=== PATIENT | female | born 1950 | race Hispanic/Latino ===

== ENCOUNTER 2020-09-04 12:04 | Inpatient (IN) | payer MEDICARE, OTHER ==
[~2020-09-04 12:04] MED LIST: Iopamidol 370 76% 100 ML VIAL ONE; Iopamidol 370 76% 50 ML VIAL FS ONE
[2020-09-04] MEDS ORDERED: Heparin 10,000 UNITS/ 10 ML VIAL ONE ×2 (12:09→13:53)
[2020-09-04] MEDS ORDERED: Nitroglycerin 100MG/250ML BOT 250 ML ONE (12:09)
[2020-09-04] MEDS ORDERED: Ondansetron PF 4 MG/2 ML Vial ONE (12:09)
[2020-09-04 12:25] LABS: #Basophils 0.1 thou/uL (0.0-0.2); #Eosinphils 0.2 thou/uL (0.0-0.7); #Lymphocytes 2.4 thou/uL (1.20-3.40); #Monocytes 0.7 thou/uL (0.11-0.59); #Neutrophils 8.8 thou/uL (1.40-6.50); %Basophils 0.9 % (0.0-1.0); %Eosinophils 1.7 % (0.0-10.0); %Lymphocytes 19.3 % (21.0-51.0); %Monocytes 5.7 % (0.0-10.0); %Neutrophils 72.4 % (42.0-75.0); Hemoglobin 13.3 g/dL (12.0-16.0); Mean Corpuscular HGB CONC 33.8 g/dL (32.0-36.0); Mean Corpuscular Hemoglobin 31.4 pg (27.0-31.0); Mean Corpuscular Volume 92.8 fL (78.0-98.0); Mean Platelet Volume 7.2 fL (7.4-10.4); Platelet Count 360 thou/uL (130-400); RBC Distribution Width 12.1 % (11.5-14.5); Red Blood Cell (RBC) Count 4.24 mill/uL (4.20-5.40); White Blood Cell (WBC) Count 12.2 thou/uL (4.8-10.8)
[2020-09-04 12:46] LABS: ALT (SGPT) 11 U/L (8-55); AST (SGOT) 12 U/L (5-34); Alkaline Phosphatase 84 U/L (40-110); Anion Gap 15 mmol/L (10-20); BUN (Urea Nitrogen) 15 mg/dL (9.8-20.1); Bilirubin, Total 0.5 mg/dL (0.2-1.2); Calc. Creatinine Clearance 0 mL/min (70-130); Calcium 9.6 mg/dL (7.8-10.44); Carbon Dioxide 26 mmol/L (23-31); Chloride 103 mmol/L (98-107); Estimated GFR-MDRD 59; Globulin 2.9 g/dL (2.4-3.5); Glucose 235 mg/dL (83-110); Potassium 3.6 mmol/L (3.5-5.1); Protein, Total 6.9 g/dL (6.0-8.3); Sodium 140 mmol/L (136-145)
[2020-09-04] MEDS ORDERED: Aggrastat 12.5 MG/250 ML 250 ML ONE (12:53)
[2020-09-04] MEDS ORDERED: Norepinephrine 4 MG/4 ML VIAL ONE ×2 (12:54→13:18)
[2020-09-04 13:08] LABS: CKMB 2.5 ng/mL (0-6.6)
[2020-09-04] MEDS ORDERED: Fentanyl 100 MCG/2 ML VIAL ONE (13:19)
[2020-09-04] MEDS ORDERED: TICAGRELOR 90 MG TABLET ONE ×2 (13:45→14:20)
--- NOTE | 2020-09-04 14:15 | RAD ---
PORTABLE CHEST: Date: 09-04-2020 PROVIDED CLINICAL HISTORY: Chest pain FINDINGS: Comparison is made with examination performed earlier same date. Significant interval change with respect to the prior examination is not apparent. IMPRESSION: As above. POS: REAGAN
[2020-09-04 14:44] VITALS: BMI 44.7
[2020-09-04] MEDS ORDERED: Nitroglycerin 0.4 MG TAB (25 Tab Bottle) SL PRN (15:25)
[2020-09-04] MEDS ORDERED: TICAGRELOR 90 MG TABLET PO SCH (15:30)
[2020-09-04] MEDS ORDERED: Aspirin Chewable 81 MG TAB PO SCH (16:00)
[2020-09-04] MEDS: Carvedilol 3.125 MG TAB PO SCH (16:34)
[2020-09-04] MEDS: Sodium Chloride 0.9% 1,000 ML IV SCH ×2 (16:38→20:08)
[2020-09-04] MEDS: traMADol HCl 50 MG TAB PO PRN (17:39)
[2020-09-04 17:52] LABS: Troponin I Greater than 45.000 ng/mL (< 0.028)
[2020-09-04] MEDS: TICAGRELOR 90 MG TABLET PO SCH (20:08)
[2020-09-04] MEDS: Atorvastatin Calcium 40 MG TAB PO SCH (20:08)
--- NOTE | 2020-09-04 20:46 | HP ---
REASON FOR TRANSFER: Acute anterior myocardial infarction. HISTORY OF PRESENT ILLNESS: Ms. Hernandez is a 70-year-old woman, with history of morbid obesity, diabetes, hypertension, and hypercholesterolemia. The patient presented to the emergency room in [place] with severe substernal chest pain. EKG showed an acute anterior myocardial infarction. Patient was transferred here. The initial EKG showed ST elevation in lead 1 and aVL with T-wave inversions in II, III, and aVF, but when arrival here, her EKG had worsened with increasing amounts of ST elevation. Patient is having 10/10 pain, was very uncomfortable, almost panicky. PAST HISTORY: 1. Morbid obesity. 2. Diabetes. 3. Hypertension. 4. Hypercholesterolemia. MEDICATION: Unknown. REVIEW OF SYSTEMS: CONSTITUTIONAL: No weight loss. VISION: No changes. HEARING: No changes. PULMONARY: No cough or wheezing. CARDIAC: Severe chest pain. GASTROINTESTINAL: No nausea, vomiting, or diarrhea. SKIN: No rashes. NEUROLOGIC: No unilateral weakness or numbness. PSYCHIATRIC: No unusual depression or anxiety. PHYSICAL EXAMINATION: GENERAL: This is a morbidly obese patient. She states she is 5 feet 6 inches tall, weighs over 280 pounds. Per her report, I would estimate she weighs at least that much. VITAL SIGNS: Blood pressure is variable anywhere and sometimes in the 100 systolic range and sometimes higher. Pulse is in the 70s. NECK: Neck veins are normal. Carotids, no bruits. LUNGS: Distant heart sounds due to obesity. CARDIAC: Normal S1, normal S2. No murmur, rub, or gallop. ABDOMEN: Morbidly obese. EXTREMITIES: No clubbing or cyanosis. There is no edema. Peripheral pulses palpable in her feet. DIAGNOSTIC STUDIES: EKG showed severe ST elevation. ASSESSMENT: 1. Acute extensive myocardial infarction. 2. Morbid obesity. 3. Diabetes. 4. History of hypertension. 5. History of hypercholesterolemia. PLAN: Through an post closing specialist, I have explained the procedure of the cardiac catheterization. I have explained risk of stroke, heart attack, loss of blood supply to the leg or kidney. Patient is critically ill. Procedure on an emergency basis to the cardiac catheterization lab. Job ID: [id number]
[2020-09-04] MEDS ORDERED: Lisinopril 2.5 MG TAB PO SCH ×2 (21:45→21:55)
[2020-09-04] MEDS ORDERED: Magnesium Sulfate 3 GM in Sodium Chloride 0.9% 250 ML 250 ML IVPB SCH (22:30)
[2020-09-04 23:46] LABS: Anion Gap 10 mmol/L (10-20); BUN (Urea Nitrogen) 12 mg/dL (9.8-20.1); Calc. Creatinine Clearance 153 mL/min (70-130); Calcium 7.4 mg/dL (7.8-10.44); Carbon Dioxide 20 mmol/L (23-31); Chloride 110 mmol/L (98-107); Estimated GFR-MDRD 88; Glucose 173 mg/dL (83-110); Potassium 3.4 mmol/L (3.5-5.1); Sodium 137 mmol/L (136-145)
[2020-09-04 23:52] LABS: Critical Call Chem Troponin I RESULT DECREASING; Troponin I 89.057 ng/mL (< 0.028)
[2020-09-05] MEDS: traMADol HCl 50 MG TAB PO PRN (02:37)
[2020-09-05 03:52] LABS: #Basophils 0.1 thou/uL (0.0-0.2); #Eosinphils 0.1 thou/uL (0.0-0.7); #Lymphocytes 1.2 thou/uL (1.20-3.40); #Monocytes 0.7 thou/uL (0.11-0.59); #Neutrophils 10.8 thou/uL (1.40-6.50); %Basophils 0.5 % (0.0-1.0); %Eosinophils 0.4 % (0.0-10.0); %Lymphocytes 9.2 % (21.0-51.0); %Monocytes 5.4 % (0.0-10.0); %Neutrophils 84.5 % (42.0-75.0); Hemoglobin 12.8 g/dL (12.0-16.0); Mean Corpuscular HGB CONC 33.6 g/dL (32.0-36.0); Mean Corpuscular Hemoglobin 30.8 pg (27.0-31.0); Mean Corpuscular Volume 91.7 fL (78.0-98.0); Mean Platelet Volume 7.3 fL (7.4-10.4); Platelet Count 307 thou/uL (130-400); RBC Distribution Width 12.3 % (11.5-14.5); Red Blood Cell (RBC) Count 4.16 mill/uL (4.20-5.40); White Blood Cell (WBC) Count 12.8 thou/uL (4.8-10.8)
[2020-09-05 04:14] LABS: ALT (SGPT) 32 U/L (8-55); AST (SGOT) 188 U/L (5-34); Albumin 3.5 g/dL (3.4-4.8); Alkaline Phosphatase 73 U/L (40-110); Anion Gap 13 mmol/L (10-20); BUN (Urea Nitrogen) 13 mg/dL (9.8-20.1); Bilirubin, Total 0.4 mg/dL (0.2-1.2); Calc. Creatinine Clearance 123 mL/min (70-130); Calcium 8.7 mg/dL (7.8-10.44); Carbon Dioxide 23 mmol/L (23-31); Chloride 104 mmol/L (98-107); Estimated GFR-MDRD 69; Globulin 2.5 g/dL (2.4-3.5); Glucose 205 mg/dL (83-110); Potassium 3.9 mmol/L (3.5-5.1); Sodium 136 mmol/L (136-145)
[2020-09-05 04:33] LABS: Troponin I 91.479 ng/mL (< 0.028)
[2020-09-05] MEDS ORDERED: FLU VACC QS2020-21(65YR UP)/PF 240 MCG/0.7 ML SYRINGE IM ONE (09:00)
[2020-09-05] MEDS ORDERED: Lisinopril 2.5 MG TAB PO SCH (09:00)
[2020-09-05] MEDS ORDERED: Aspirin Chewable 81 MG TAB PO SCH (09:00)
[2020-09-05] MEDS: Aspirin Chewable 81 MG TAB PO SCH (09:11)
[2020-09-05] MEDS: Carvedilol 3.125 MG TAB PO SCH (09:12)
[2020-09-05] MEDS: TICAGRELOR 90 MG TABLET PO SCH ×2 (09:14→20:33)
[2020-09-05] MEDS: Lisinopril 5 MG TAB PO SCH ×2 (09:14→10:38)
--- NOTE | 2020-09-05 09:44 | PRG ---
DATE OF SERVICE: 09/05/2020 SUBJECTIVE: Ms. Hernandez is feeling okay this morning. She complains of abdominal bloating. She has no chest pain or pressure. The patient is very immobile. She is overweight. OBJECTIVE: VITAL SIGNS: She is 5 feet 6 inches tall, 277 pounds, BMI is 44.7. LUNGS: Clear. CARDIAC: Normal S1, S2. ABDOMEN: Obese, nontender. EXTREMITIES: No clubbing or cyanosis. No edema. PERTINENT LABORATORY DATA: Her peak troponin was 91.4. Potassium is 3.9, glucose 205. ASSESSMENT: 1. Status post anterior myocardial infarction. 2. Morbid obesity. 3. Diabetes mellitus. 4. Abdominal fullness. It was noted in the [employer] that she had a lot of colonic distention. PLAN: 1. Need to get her up and around. 2. She is on statins. 3. Aspirin. 4. Beta blockers. 5. Brilinta. 6. Really need to get physical therapy involved, cardiac rehab, looks like the patient is going to have a tendency to not get up and around. She is extremely overweight, looks like mobility is a real problem as well. We will start low-dose Lovenox today as well. ADDENDUM: Ms. Hernandez developed atrial arrhythmias with a rapid rate. Some of it looks like atrial flutter, some looks like atrial fibrillation. She has been started on intravenous diltiazem and we are also adding beta blockers. Job ID: [id number]
[2020-09-05 10:00] LABS: Cardiac Risk 3.2 (Less than 4.5)
[2020-09-05] MEDS: Bisacodyl 5 MG TAB PO PRN (10:59)
[2020-09-05] MEDS: Sodium Chloride 0.9% 1,000 ML IV SCH (11:47)
[2020-09-05] MEDS ORDERED: Enoxaparin Sodium 40 MG/0.4 ML SYRINGE SC SCH (12:00)
[2020-09-05] MEDS: Milk Of Magnesia 30 ML UDCUP PO PRN (15:16)
[2020-09-05] MEDS ORDERED: Diltiazem 125 MG in Sodium Chloride 0.9% 100 ML IVPB SCH ×2 (15:30→18:55)
[2020-09-05] MEDS: Simethicone Chewable 80 MG TAB PO PRN ×2 (16:46→22:52)
[2020-09-05] MEDS ORDERED: Metoprolol Tartrate 25 MG TAB PO SCH (17:00)
[2020-09-05] MEDS ORDERED: Metoprolol Tartrate 5 MG/5 ML VIAL IVP SCH ×2 (17:00→17:30)
[2020-09-05] MEDS ORDERED: Nitroglycerin 2% Ointment 1 INCH/1 GM Packet TOP SCH (19:00)
[2020-09-05] MEDS ORDERED: Furosemide 40 MG/4 ML VIAL SLOW IVP SCH (19:00)
[2020-09-05] MEDS ORDERED: Potassium Chloride 20 MEQ TAB PO SCH (19:00)
[2020-09-05] MEDS: Metoprolol Tartrate 25 MG TAB PO SCH (20:33)
[2020-09-05] MEDS: Atorvastatin Calcium 40 MG TAB PO SCH (20:34)
[2020-09-05] MEDS: Amiodarone 450 MG in Dextrose 5% in Water 250 ML IVPB SCH (21:44)
[2020-09-06] MEDS: Amiodarone 450 MG in Dextrose 5% in Water 250 ML IVPB SCH (06:10)
[2020-09-06] MEDS: Lisinopril 5 MG TAB PO SCH (08:16)
[2020-09-06] MEDS: Metoprolol Tartrate 25 MG TAB PO SCH (08:16)
[2020-09-06] MEDS: Aspirin Chewable 81 MG TAB PO SCH (08:17)
[2020-09-06] MEDS: Enoxaparin Sodium 40 MG/0.4 ML SYRINGE SC SCH (08:17)
[2020-09-06] MEDS: TICAGRELOR 90 MG TABLET PO SCH ×2 (08:21→20:16)
[2020-09-06] MEDS ORDERED: Potassium Chloride 20 MEQ TAB PO SCH (08:45)
[2020-09-06] MEDS ORDERED: metFORMIN 500 MG TAB PO SCH (09:45)
--- NOTE | 2020-09-06 14:50 | EKG ---
Test Reason : Blood Pressure : / mmHG Vent. Rate : 075 BPM Atrial Rate : 075 BPM P-R Int : 168 ms QRS Dur : 072 ms QT Int : 420 ms P-R-T Axes : 067 071 087 degrees QTc Int : 469 ms Normal sinus rhythm Low voltage QRS Cannot rule out Anteroseptal infarct (cited on or before 04-SEP-2020) Abnormal ECG When compared with ECG of 04-SEP-2020 17:08, (Unconfirmed) T wave inversion now evident in Anterior leads Confirmed by ROE GRAY (2) on 09/06/2020 2:49:43 PM Referred By: NILS Confirmed By:ROE GRAY
[2020-09-06] MEDS: Simethicone Chewable 80 MG TAB PO PRN ×2 (14:58→22:42)
--- NOTE | 2020-09-06 15:00 | EKG ---
Test Reason : Blood Pressure : / mmHG Vent. Rate : 140 BPM Atrial Rate : 140 BPM P-R Int : 000 ms QRS Dur : 060 ms QT Int : 300 ms P-R-T Axes : 000 -17 017 degrees QTc Int : 458 ms Atrial fibrillation with rapid ventricular response with aberrantly conducted beats. Low voltage QRS Possible Inferior infarct , age undetermined Cannot rule out Anteroseptal infarct (cited on or before 04-SEP-2020) Lateral injury pattern * ACUTE [place] * Abnormal ECG When compared with ECG of 05-SEP-2020 07:40, (Unconfirmed) Current undetermined rhythm precludes rhythm comparison, needs review Borderline criteria for Inferior infarct are now Present ST now depressed in Inferior leads T wave inversion now evident in Inferior leads Confirmed by ROE GARY (2) on 09/06/2020 3:00:23 PM Referred By: NILS Confirmed By:ROE GRAY
--- NOTE | 2020-09-06 15:01 | EKG ---
Test Reason : STAT Blood Pressure : / mmHG Vent. Rate : 085 BPM Atrial Rate : 085 BPM P-R Int : 168 ms QRS Dur : 070 ms QT Int : 392 ms P-R-T Axes : 047 -11 090 degrees QTc Int : 466 ms Normal sinus rhythm Low voltage QRS Anteroseptal infarct (cited on or before 04-SEP-2020) ACUTE [place] / STEMI Abnormal ECG When compared with ECG of 05-SEP-2020 07:40, (Unconfirmed) Questionable change in QRS axis Confirmed by ROE GRAY (2) on 09/06/2020 3:01:06 PM Referred By: Alex WRAY Confirmed By:ROE GRAY
[2020-09-06] MEDS: Carvedilol 3.125 MG TAB PO SCH (16:26)
[2020-09-06] MEDS: metFORMIN 500 MG TAB PO SCH (16:27)
[2020-09-06] MEDS: Atorvastatin Calcium 40 MG TAB PO SCH (20:16)
[2020-09-06] MEDS: traMADol HCl 50 MG TAB PO PRN (20:21)
[2020-09-07] MEDS: Simethicone Chewable 80 MG TAB PO PRN ×2 (08:45→17:35)
[2020-09-07] MEDS: metFORMIN 500 MG TAB PO SCH ×2 (08:45→17:32)
[2020-09-07] MEDS: Milk Of Magnesia 30 ML UDCUP PO PRN (08:45)
[2020-09-07] MEDS: Aspirin Chewable 81 MG TAB PO SCH (08:45)
[2020-09-07] MEDS: Carvedilol 3.125 MG TAB PO SCH ×2 (08:45→17:32)
[2020-09-07] MEDS: Lisinopril 5 MG TAB PO SCH (08:45)
[2020-09-07] MEDS: TICAGRELOR 90 MG TABLET PO SCH ×2 (08:45→20:28)
[2020-09-07] MEDS: Enoxaparin Sodium 40 MG/0.4 ML SYRINGE SC SCH (08:46)
[2020-09-07] MEDS ORDERED: Bisacodyl 5 MG TAB PO SCH ×3 (09:45→18:00)
[2020-09-07] MEDS ORDERED: Furosemide 20 MG/2 ML VIAL SLOW IVP SCH (09:45)
--- NOTE | 2020-09-07 09:58 | PRG ---
DATE OF SERVICE: 09/07/2020 SUBJECTIVE: Ms. Hernandez does not feel well. Her abdomen is distended. She said she has a lot of gas and has not had a bowel movement. She has some vague discomfort in her chest. She also feels short of breath. Her weight is 292 pounds. She said she is 5 feet and 6 inches tall. I suspect she is shorter. There is a nurse in the ICU, who said she is 5 feet and 6 inches and when she stood up next to her, she said she was much taller than the patient. She may be more like 5 feet and 3 inches. OBJECTIVE: LUNGS: Clear. CARDIAC: Normal S1, normal S2. ABDOMEN: Obese and nontender. EXTREMITIES: No clubbing or cyanosis. There is mild edema. DIAGNOSTIC STUDIES: EKG reveals recent anterior myocardial infarction, maybe forming some aneurysmal dilatation. ASSESSMENT: 1. Status post anterior myocardial infarction. 2. Morbid obesity. 3. Diabetes. 4. Probably has some diabetic related slow transit in her digestive system. She had a lot of gas in her colon at the time of catheterization initially. PLAN: 1. I talked with Dr. Waggoner, he said he would recommend stopping lactulose. 2. Give her Dulcolax. 3. Give her some Lasix, she is probably in mild heart failure. 4. Continue amiodarone. She did not tolerate it when she went into fibrillation earlier, she is still on IV amiodarone. Prognosis remains guarded. Need to get the patient up and around. Job ID: [id number]
[2020-09-07 11:13] LABS: SARS-CoV-2 MS2 Positive; SARS-CoV-2 N Gene Negative; SARS-CoV-2 S Gene Negative; SARS-CoV-2 by NAA Not Detected (NotDetected); SARS-CoV-2 orf1ab Negative
--- NOTE | 2020-09-07 11:58 | PRG ---
DATE OF SERVICE: 09/06/2020 SUBJECTIVE: Ms. Hernandez is feeling much better. She is back up in a chair. She converted back to sinus rhythm late last night. She had to be moved to the intensive care unit last night as she got short of breath with her atrial arrhythmia and the recent DC, but now she is doing fine. OBJECTIVE: VITAL SIGNS: Blood pressure 140/88, pulse 86 and regular. LUNGS: Clear. CARDIAC: Normal S1, normal S2. ABDOMEN: Obese, nontender. EXTREMITIES: No edema. She does complain of constipation, this is a longstanding problem. ASSESSMENT: 1. Status post anterior myocardial infarction. 2. Diabetes. 3. Morbid obesity. PLAN: 1. She is on intravenous amiodarone. 2. She is off Cardizem. 3. Resume carvedilol. 4. Keep until at least after noon before back out to the floor. Job ID: [id number]
[2020-09-07] MEDS ORDERED: Potassium Chloride 20 MEQ TAB PO SCH (12:00)
[2020-09-07] MEDS: Amiodarone 450 MG in Dextrose 5% in Water 250 ML IVPB SCH (13:22)
[2020-09-07] MEDS: Atorvastatin Calcium 40 MG TAB PO SCH (20:27)
[2020-09-08] MEDS: Amiodarone 450 MG in Dextrose 5% in Water 250 ML IVPB SCH (03:45)
[2020-09-08] MEDS: Aspirin Chewable 81 MG TAB PO SCH (08:24)
[2020-09-08] MEDS: metFORMIN 500 MG TAB PO SCH ×2 (08:25→16:15)
[2020-09-08] MEDS: Carvedilol 3.125 MG TAB PO SCH ×2 (08:25→16:15)
[2020-09-08] MEDS: Enoxaparin Sodium 40 MG/0.4 ML SYRINGE SC SCH ×2 (08:26→08:32)
[2020-09-08] MEDS: Lisinopril 5 MG TAB PO SCH (08:26)
[2020-09-08] MEDS: Bisacodyl 5 MG TAB PO SCH (08:26)
[2020-09-08] MEDS: TICAGRELOR 90 MG TABLET PO SCH ×2 (08:27→19:54)
--- NOTE | 2020-09-08 09:25 | PRG ---
DATE OF SERVICE: 09/08/2020 SUBJECTIVE: Ms. Hernandez is not having chest pain or shortness of breath. She states she does not like the food. She complains of abdominal pain, generalized, but mostly in the right side of her abdomen. I do not think she has been getting up and around much. She said she had some blood in her stool yesterday. She also had some blood in her urine. The patient did receive Lovenox yesterday. She is also on aspirin and ticagrelor. OBJECTIVE: VITAL SIGNS: Blood pressure 133/74, pulse 72 and regular. LUNGS: Clear. ABDOMEN: Obese, nontender. EXTREMITIES: No significant edema. The patient is still on intravenous amiodarone. ASSESSMENT: 1. Status post anterior myocardial infarction. 2. Diabetes. 3. Morbid obesity. 4. It appears she has chronic constipation during the cath at the end of the procedure. did reveal she has very dilated loops of bowel. My recollection is that it was large intestine, but I will need to review those films to see. PLAN: 1. She is on Dulcolax. She is not getting much relief. I will ask GI to see if there are any other suggestions. 2. We will do abdominal films. 3. She is on aspirin. 4. Brilinta. 5. ALEXANDRU inhibitor. 6. Beta-brent. 7. Statin. 8. IV amiodarone. We will continue that until tomorrow, then we will stop. I am reluctant to give her p.o. amiodarone that tends to constipate. Job ID: [id number]
--- NOTE | 2020-09-08 09:42 | RAD ---
ABDOMEN 1 VIEW: Date: 09/08/2020 COMPARISON: None. HISTORY: Chronic constipation. Abdominal pain. FINDINGS: Single supine view of the abdomen demonstrates a nonspecific bowel gas pattern. There are no suspicio us densities in the abdomen or pelvis. There is air and minimal fecal material in the colon. No radio graphic evidence of constipation. No evidence of small bowel distention or dilatation. Chronic changes in the osseous structures are identified. IMPRESSION: No radiographic evidence of constipation. If there is still concern for possible acute pathology in t he abdomen, consider abdomen and pelvic CT with IV and oral contrast. POS: AH
--- NOTE | 2020-09-08 15:07 | CON ---
DATE OF CONSULTATION: 09/08/2020 CHIEF COMPLAINT: Abdominal pain. HISTORY OF PRESENT ILLNESS: Ms. Hernandez is a 70-year-old woman, who was admitted on 09/04/[address]-elevation AK for which she underwent cardiac catheterization and stenting of a 90% LAD lesion. Over the last few days since then, she has complained of pressure-type pain in the epigastric region that radiates up towards her chest with burning, particularly after drinking MiraLAX. She feels bloated and has abdominal distention. She complains of small incomplete bowel movements. She had reported to the other physician that she had some blood in her stool and urine yesterday. However today, she denies blood in her stool. She has had no vomiting with this, but does feel the burning coming up into her chest after drinking the MiraLAX. She reports a prior colonoscopy was done maybe 15 years ago in [place]. PAST MEDICAL HISTORY: Diabetes mellitus, hypertension, hyperlipidemia, morbid obesity. PAST SURGICAL HISTORY: Appendectomy. FAMILY HISTORY: Negative for GI malignancy. SOCIAL HISTORY: No alcohol, tobacco, or drugs. ALLERGIES: MORPHINE. CURRENT INPATIENT MEDICATIONS: Include: 1. Amiodarone. 2. Atorvastatin. 3. Lisinopril. 4. Metformin. 5. Brilinta 90 mg twice daily. REVIEW OF SYSTEMS: Negative x10 systems reviewed except as stated in history of present illness. PHYSICAL EXAMINATION: VITAL SIGNS: Temperature is 97.5, pulse 73, blood pressure 133/67. GENERAL: She is in no acute distress. Alert and oriented x3. She is morbidly obese. HEENT: Her eyes have no scleral icterus. Oropharynx is clear without lesions. LYMPHATIC: No cervical or supraclavicular lymphadenopathy. LUNGS: Clear to auscultation bilaterally. HEART: Regular rate and rhythm without murmur. ABDOMEN: Soft. No focal tenderness to palpation. EXTREMITIES: No lower extremity edema. NEUROLOGIC: Cranial nerves are grossly intact. LABORATORY DATA: White blood cell count 12.8, hemoglobin 12.8, platelets 307. Bilirubin 0.4, AST 188, ALT 32, alkaline phosphatase 73. Troponin 91. Creatinine 0.66. IMPRESSION: 1. Epigastric bloating discomfort along with constipation with small incomplete stools. She also has reflux when she has taken some laxatives. She received some lactulose, which was stopped due to the bloating. 2. Constipation. 3. ST-elevation myocardial infarction. RECOMMENDATIONS: 1. Start proton pump inhibitor. 2. Schedule MiraLAX daily. 3. Follow up in the office in a month and we can plan for upper and lower endoscopy later on after that to further evaluate her symptoms depending on the progression. She has not had a colonoscopy in over 15 years. Job ID: [id number]
[2020-09-08] MEDS: Atorvastatin Calcium 40 MG TAB PO SCH (19:54)
[2020-09-09] MEDS: Simethicone Chewable 80 MG TAB PO PRN (04:56)
[2020-09-09 05:13] LABS: #Basophils 0.1 thou/uL (0.0-0.2); #Eosinphils 0.2 thou/uL (0.0-0.7); #Lymphocytes 1.2 thou/uL (1.20-3.40); %Basophils 0.4 % (0.0-1.0); %Eosinophils 1.4 % (0.0-10.0); %Lymphocytes 9.7 % (21.0-51.0); %Monocytes 8.2 % (0.0-10.0); %Neutrophils 80.3 % (42.0-75.0); Hemoglobin 10.6 g/dL (12.0-16.0); Mean Corpuscular HGB CONC 33.6 g/dL (32.0-36.0); Mean Corpuscular Hemoglobin 31.4 pg (27.0-31.0); Mean Corpuscular Volume 93.4 fL (78.0-98.0); Mean Platelet Volume 7.6 fL (7.4-10.4); Platelet Count 293 thou/uL (130-400); RBC Distribution Width 12.4 % (11.5-14.5); Red Blood Cell (RBC) Count 3.37 mill/uL (4.20-5.40); White Blood Cell (WBC) Count 12.4 thou/uL (4.8-10.8)
[2020-09-09 05:44] LABS: Anion Gap 14 mmol/L (10-20); BUN (Urea Nitrogen) 16 mg/dL (9.8-20.1); Calc. Creatinine Clearance 105 mL/min (70-130); Calcium 8.9 mg/dL (7.8-10.44); Carbon Dioxide 22 mmol/L (23-31); Chloride 98 mmol/L (98-107); Estimated GFR-MDRD 54; Glucose 170 mg/dL (83-110); Potassium 4.4 mmol/L (3.5-5.1); Sodium 130 mmol/L (136-145)
[2020-09-09] MEDS: Aspirin Chewable 81 MG TAB PO SCH (08:26)
[2020-09-09] MEDS: Polyethylene Glycol 3350 17 GM Packet PO SCH (08:26)
[2020-09-09] MEDS: Bisacodyl 5 MG TAB PO SCH (08:27)
[2020-09-09] MEDS: Lisinopril 5 MG TAB PO SCH (08:27)
[2020-09-09] MEDS: TICAGRELOR 90 MG TABLET PO SCH (08:27)
[2020-09-09] MEDS: metFORMIN 500 MG TAB PO SCH ×2 (08:28→17:16)
[2020-09-09] MEDS: Amiodarone 450 MG in Dextrose 5% in Water 250 ML IVPB SCH ×2 (08:28→23:39)
[2020-09-09] MEDS: Carvedilol 3.125 MG TAB PO SCH (08:28)
[2020-09-09] MEDS ORDERED: Furosemide 20 MG/2 ML VIAL SLOW IVP SCH (13:00)
[2020-09-09] MEDS ORDERED: Enoxaparin Sodium 40 MG/0.4 ML SYRINGE SC SCH (13:00)
[2020-09-09] MEDS ORDERED: Clopidogrel Bisulfate 300 MG TAB PO SCH (13:00)
--- NOTE | 2020-09-09 13:24 | EKG ---
Test Reason : POST-PROCEDURE Blood Pressure : / mmHG Vent. Rate : 077 BPM Atrial Rate : 077 BPM P-R Int : 170 ms QRS Dur : 072 ms QT Int : 418 ms P-R-T Axes : 075 073 057 degrees QTc Int : 473 ms Normal sinus rhythm with sinus arrhythmia Low voltage QRS Cannot rule out Anteroseptal infarct , age undetermined Abnormal ECG No previous ECGs available Confirmed by DR. Kelby WRAY ([id number]) on 09/09/2020 1:23:52 PM Referred By: NILS Confirmed By:DR. Kelby WRAY
--- NOTE | 2020-09-09 13:26 | PRG ---
DATE OF SERVICE: 09/09/2020 SUBJECTIVE: Ms. Hernandez states she does not feel well. She has abdominal pain, lower substernal chest pain, pain up in her throat. She said generally does not have much appetite. Things do not taste good to her. When she gets up and walks around, she feels tired. The patient was in atrial fibrillation early this morning with a heart rate just over 100. Now, she is back in sinus rhythm. OBJECTIVE: VITAL SIGNS: Her blood pressure is 123/60, earlier was it 155/91 when she was in fibrillation. Temperature is 97.9. Her weight is 291 pounds. She estimates her height 5 feet and 6 inches, we think she is more like 5 feet and 2 inches. LUNGS: Clear. CARDIAC: Normal S1, normal S2. ABDOMEN: Obese, nontender. EXTREMITIES: Warm and dry. No clubbing or cyanosis. There is mild edema. ASSESSMENT: 1. Status post anterior myocardial infarction. 2. Diffuse abdominal pain of uncertain etiology. 3. Type 2 diabetes. 4. Morbid obesity. 5. Paroxysmal atrial fibrillation. 6. Hematuria resolved after being off Lovenox for couple of days. She is only on deep venous thrombosis prophylaxis. 7. Hypercholesterolemia. PLAN: 1. I have consulted with Dr. Garcia, GI. We have her on proton pump inhibitors. 2. increase the beta brent dose. 3. Continue intravenous amiodarone. I do not want to give her oral amiodarone now since she already has an upset stomach. 4. Change from Brilinta to Plavix. 5. Strongly encourage ambulation. 6. Continue ALEXANDRU inhibitors and statins. 7. Dr. Scott to see this weekend. ADDENDUM: The patient does have a history of gallbladder surgery over 30 years ago. Had her gallbladder removed. She has an incisional scar in the right upper quadrant, compatible with that history. Job ID: [id number]
[2020-09-09] MEDS: Carvedilol 6.25 MG TAB PO SCH (17:16)
--- NOTE | 2020-09-09 19:54 | PRG ---
DATE OF SERVICE: 09/09/2020 SUBJECTIVE: Ms. Hernandez still has the epigastric bloating pressure type pain. Today, the pain seems to radiate more round over to the right upper quadrant. She has had a cholecystectomy in the past. OBJECTIVE: VITAL SIGNS: Temperature 97.7, pulse 88, blood pressure 117/64. GENERAL: She is in no acute distress. Awake and alert. 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 LUNGS: Clear to auscultation bilaterally. HEART: Regular rate and rhythm without murmur. ABDOMEN: Soft. Minimal tenderness in the upper abdomen without guarding. Bowel sounds are present. EXTREMITIES: No lower extremity edema. LABORATORY DATA: Creatinine 1.01. IMPRESSION: 1. Epigastric to right upper quadrant bloating pressure type pain. Peptic ulcer is possible. Constipation is possible. Other etiology is also possible. We will continue to see how she responds to the proton pump inhibitor and laxative. 2. Anemia. Her hemoglobin was noted to decrease to 10.6 today. We will continue to monitor for signs of overt bleeding. 3. Acute ST-elevation myocardial infarction status post stent to the LAD. RECOMMENDATIONS: 1. Pantoprazole. 2. MiraLAX. 3. We will continue to follow. Job ID: [id number]
[2020-09-09] MEDS: Atorvastatin Calcium 40 MG TAB PO SCH (20:32)
[2020-09-10 04:30] LABS: #Eosinphils 0.2 thou/uL (0.0-0.7); #Monocytes 1.1 thou/uL (0.11-0.59); #Neutrophils 9.7 thou/uL (1.40-6.50); %Basophils 0.3 % (0.0-1.0); %Eosinophils 1.6 % (0.0-10.0); %Lymphocytes 7.9 % (21.0-51.0); %Monocytes 9.4 % (0.0-10.0); %Neutrophils 80.9 % (42.0-75.0); Hemoglobin 11.1 g/dL (12.0-16.0); Mean Corpuscular HGB CONC 34.4 g/dL (32.0-36.0); Mean Corpuscular Hemoglobin 31.4 pg (27.0-31.0); Mean Corpuscular Volume 91.3 fL (78.0-98.0); Mean Platelet Volume 7.5 fL (7.4-10.4); Platelet Count 262 thou/uL (130-400); RBC Distribution Width 12.4 % (11.5-14.5); Red Blood Cell (RBC) Count 3.55 mill/uL (4.20-5.40)
[2020-09-10 04:46] LABS: ALT (SGPT) 29 U/L (8-55); AST (SGOT) 18 U/L (5-34); Albumin 3.3 g/dL (3.4-4.8); Alkaline Phosphatase 100 U/L (40-110); Anion Gap 13 mmol/L (10-20); BUN (Urea Nitrogen) 14 mg/dL (9.8-20.1); Bilirubin, Total 0.7 mg/dL (0.2-1.2); Calc. Creatinine Clearance 112 mL/min (70-130); Calcium 8.8 mg/dL (7.8-10.44); Carbon Dioxide 20 mmol/L (23-31); Chloride 99 mmol/L (98-107); Estimated GFR-MDRD 58; Globulin 2.7 g/dL (2.4-3.5); Glucose 163 mg/dL (83-110); Sodium 128 mmol/L (136-145)
[2020-09-10] MEDS: Polyethylene Glycol 3350 17 GM Packet PO SCH (08:28)
[2020-09-10] MEDS: Aspirin Chewable 81 MG TAB PO SCH (08:28)
[2020-09-10] MEDS: Bisacodyl 5 MG TAB PO SCH (08:28)
[2020-09-10] MEDS: Lisinopril 5 MG TAB PO SCH (08:28)
[2020-09-10] MEDS: metFORMIN 500 MG TAB PO SCH ×2 (08:28→17:26)
[2020-09-10] MEDS: Clopidogrel Bisulfate 75 MG TAB PO SCH (08:28)
[2020-09-10] MEDS: Carvedilol 6.25 MG TAB PO SCH ×2 (08:29→17:26)
[2020-09-10] MEDS ORDERED: Enoxaparin Sodium 40 MG/0.4 ML SYRINGE SC SCH (09:00)
[2020-09-10] MEDS: Simethicone Chewable 80 MG TAB PO PRN (11:16)
--- NOTE | 2020-09-10 12:53 | PRG ---
DATE OF SERVICE: 09/10/2020 SUBJECTIVE: Ms. Hernandez complains still of abdominal discomfort, but really now this time it is more today substernal which worsens with eating bread, but she has no right upper quadrant or epigastric pain today. She has no nausea or vomiting. OBJECTIVE: VITAL SIGNS: Blood pressure is 162/90, temperature 97.5, and pulse is 82. GENERAL: She is in no acute distress. Awake and alert. LUNGS: Clear to auscultation bilaterally. HEART: Regular rate and rhythm without murmur. ABDOMEN: Soft, currently completely nontender in the epigastric and right upper quadrant areas. Bowel sounds are present. EXTREMITIES: 1+ pitting lower extremity edema. LABORATORY DATA: Hemoglobin is 11.1. Creatinine 0.95 and albumin 3.3. IMPRESSION: 1. Abdominal pain. Yesterday, this is more epigastric to right upper quadrant, which currently she has no tenderness or pain in this area, but some substernal discomfort, which worsens with eating bread. She does not have a food bolus obstruction, however, she is tolerating swallowing her food and liquids otherwise. 2. Acute ST-elevation myocardial infarction, status post coronary stent. RECOMMENDATIONS: Continue MiraLAX and pantoprazole. If her abdominal pain worsens again, then we can consider CT scan of the abdomen and pelvis, but given that her right upper quadrant and epigastric pain was gone this morning and she had no right upper quadrant or epigastric tenderness to palpation, I would hold off additional contrast imaging for now. Job ID: [id number]
[2020-09-10] MEDS ORDERED: Iopamidol-370 76% 500 ML 1 ML ONE (15:53)
--- NOTE | 2020-09-10 16:23 | PDOC.CPN ---
- Subjective Date: 09/10/20 Time: 16:20 Interval history: No chest pain. her only complaint is abdominal pain. - Review of Systems General: denies: fever/chills, weight/appetite/sleep changes, night sweats, fatigue Respiratory: denies: cough, congestion, shortness of breath, exercise intolerance Cardiovascular: denies: chest pain, palpitation, edema, paroxysmal nocturnal dyspnea, orthopnea Gastrointestinal: reports: abd pain. denies: nausea, vomiting, diarrhea, constipation, GI bleeding Musculoskeletal: denies: pain, tenderness, stiffness, swelling, arthritis/arthralgias Neurological: denies: numbness, syncope, seizure, weakness - Objective Allergies/Adverse Reactions: Allergies Allergy/AdvReac Type Severity Reaction Status Date / Time morphine Allergy Verified 09/04/20 14:12 Visit Medications: Current Medications Aspirin (Aspirin Chewable 81 Mg Tab) 81 mg PO DAILY [facility] Last Admin: 09/10/20 08:28 Dose: 81 mg Documented by: Atorvastatin Calcium (Atorvastatin Calcium 40 Mg Tab) 40 mg PO HS [facility] Last Admin: 09/09/20 20:32 Dose: 40 mg Documented by: Bisacodyl (Bisacodyl 5 Mg Tab) 5 mg PO DAILYPRN PRN PRN Reason: Constipation Last Admin: 09/05/20 10:59 Dose: 5 mg Documented by: Bisacodyl (Bisacodyl 5 Mg Tab) 5 mg PO DAILY [facility] Last Admin: 09/10/20 08:28 Dose: 5 mg Documented by: Carvedilol (Carvedilol 6.25 Mg Tab) 6.25 mg PO BID[facility] Last Admin: 09/10/20 08:29 Dose: 6.25 mg Documented by: Clopidogrel Bisulfate (Clopidogrel Bisulfate 75 Mg Tab) 75 mg PO DAILY [facility] Last Admin: 09/10/20 08:28 Dose: 75 mg Documented by: Enoxaparin Sodium (Enoxaparin Sodium 40 Mg/0.4 Ml Syringe) 40 mg SC 0900 [facility] Last Admin: 09/10/20 08:28 Dose: 40 mg Documented by: Amiodarone HCl 450 mg/ (Dextrose/Water) 259 mls @ 0 mls/hr IVPB INF [facility]; Protocol Last Admin: 09/09/20 23:39 Dose: 259 mls Documented by: Lisinopril (Lisinopril 5 Mg Tab) 5 mg PO DAILY [facility] Last Admin: 09/10/20 08:28 Dose: 5 mg Documented by: Magnesium Hydroxide (Milk Of Magnesia 30 Ml Udcup) 30 ml PO Q12H PRN PRN Reason: Constipation Last Admin: 09/07/20 08:45 Dose: 30 ml Documented by: Metformin HCl (Metformin 500 Mg Tab) 500 mg PO BID-WM [facility] Last Admin: 09/10/20 08:28 Dose: 500 mg Documented by: Nitroglycerin (Nitroglycerin 0.4 Mg Tab (25 Tab Bottle)) 0.4 mg SL Q5MIN PRN PRN Reason: Chest Pain Last Admin: 09/06/20 00:13 Dose: 0.4 mg Documented by: Pantoprazole Sodium (Pantoprazole 40 Mg Tab) 40 mg PO DAILY [facility] Last Admin: 09/10/20 08:28 Dose: 40 mg Documented by: Polyethylene Glycol (Polyethylene Glycol 3350 17 Gm Packet) 17 gm PO DAILY [facility] Last Admin: 09/10/20 08:28 Dose: 17 gm Documented by: Simethicone (Simethicone Chewable 80 Mg Tab) 80 mg PO [facility] PRN PRN Reason: Gas Pain Last Admin: 09/10/20 11:16 Dose: 80 mg Documented by: Sodium Chloride (Flush - Normal Saline 10 Ml Syringe) 10 ml IVF Q12HR [facility] Last Admin: 09/10/20 08:38 Dose: Not Given Documented by: Sodium Chloride (Flush - Normal Saline 10 Ml Syringe) 10 ml IVF PRN PRN PRN Reason: Saline Flush Vital Signs & Weight: Vital Signs Temp Pulse Resp BP BP BP Pulse Ox 09/10/20 08:29 162/90 H 09/10/20 08:28 82 162/90 H 09/10/20 08:27 97.5 F L 82 20 162/90 H 99 09/10/20 04:27 97.5 F L 73 16 136/64 98 Weight 291 lb 8 oz - Physical Exam General: alert & oriented x3 HEENT: mucus membranes moist Neck: supple neck Cardiac: regular rate and rhythm Lungs: clear to auscultation Neuro: grossly intact Abdomen: active bowel sounds, soft, non-tender Extremities: no edema Skin: clear Musculoskeletal: normal range of motion - Labs Result Diagrams: 09/10/20 04:14 09/10/20 04:14 Troponin/CKMB CK-MB (CK-2) 2.5 ng/mL (0-6.6) 09/04/20 12:15 Troponin I 91.479 ng/mL (< 0.028) H* 09/05/20 03:10 - Telemetry Sinus rhythms and dysrhythmias: sinus rhythm - Assessment/Plan Assessment/Plan: 1. Anterior STEMI 2. Morbid obesity 3. Type 2 diabetes 4. Abdominal pain 5. Atrial fibrillation. PLAN: - GI following for abdominal pain, she states she has had this pain for months now. She [place] sh[place] a small BM today and had small amount of diarrhea also. - Continue other meds. - Continue amiodarone drip. - Will do full anticoagulation with lovenox for stroke prophylaxis of afib. - GI recommends to do CT imaging if abdominal pain worsens, currently on my evaluation she is again writhing in pain. Will do CT.
[2020-09-10] MEDS: Amiodarone 450 MG in Dextrose 5% in Water 250 ML IVPB SCH (17:26)
[2020-09-10] MEDS: Milk Of Magnesia 30 ML UDCUP PO PRN (17:28)
[2020-09-10] MEDS: Atorvastatin Calcium 40 MG TAB PO SCH (20:04)
[2020-09-10] MEDS: Enoxaparin Sodium 30 MG/0.3 ML SYRINGE SC SCH (20:04)
[2020-09-10] MEDS: Enoxaparin Sodium 100 MG/ML SYRINGE SC SCH (20:05)
--- NOTE | 2020-09-10 20:38 | CT ---
CT ABDOMEN AND PELVIS PERFORMED WITH CONTRAST ENHANCEMENT: 09/10/20 HISTORY: Abdominal pain and atrial fibrillation. Lung bases are clear of any infiltrative process. Liver shows diffuse fatty change. The spleen and pancreas appear unremarkable. Gallbladder is somewha t difficult to identify. It appears contracted. Right and left adrenal glands are normal. Right and left kidneys are normal in size. Hypodensity invo lving the right kidney is most compatible with a cyst. There are what appear to be two adjacent 6 to 7 mm nonobstructing lower pole right renal calculi. No obstruction of either kidney. Ureters are nond ilated. There are calcifications within the pelvis making it difficult to evaluate for any subtle dis yazmin ureteral calculi. No definite calculi are seen. There is no significant periaortic or mesenteric lymphadenopathy. CT OF PELVIS PERFORMED WITH CONTRAST ENHANCEMENT: There is a fat containing left lateral abdominal wall hernia located adjacent to the left iliac crest . The diverticular changes in the sigmoid colon are not associated with any findings that would sugge st diverticulitis. Appendix region appears unremarkable. Review of osseous structures show arthritic change of the spine and hips. IMPRESSION: 1. Diffuse fatty change of the liver. 2. Small hiatal hernia. 3. Sigmoid diverticulosis. 4. Nonobstructing lower pole right renal calculi 5. Fat containing left lateral abdominal wall hernia. POS: OFF
[2020-09-10] MEDS: Acetaminophen 325 MG TAB PO PRN (22:17)
[2020-09-11] MEDS: Amiodarone 450 MG in Dextrose 5% in Water 250 ML IVPB SCH (08:23)
[2020-09-11] MEDS: Enoxaparin Sodium 100 MG/ML SYRINGE SC SCH ×2 (10:02→21:05)
[2020-09-11] MEDS: Lisinopril 5 MG TAB PO SCH (10:02)
[2020-09-11] MEDS: Enoxaparin Sodium 30 MG/0.3 ML SYRINGE SC SCH ×2 (10:02→21:04)
[2020-09-11] MEDS: Carvedilol 6.25 MG TAB PO SCH ×2 (10:03→18:23)
[2020-09-11] MEDS: Clopidogrel Bisulfate 75 MG TAB PO SCH (10:03)
[2020-09-11] MEDS: Bisacodyl 5 MG TAB PO SCH (10:03)
[2020-09-11] MEDS: Aspirin Chewable 81 MG TAB PO SCH (10:03)
[2020-09-11] MEDS: metFORMIN 500 MG TAB PO SCH ×2 (10:03→18:23)
[2020-09-11] MEDS: Polyethylene Glycol 3350 17 GM Packet PO SCH (10:04)
--- NOTE | 2020-09-11 13:05 | ULT ---
EXAM: Right upper extremity venous Doppler HISTORY: Right upper arm pain. FINDINGS: Grayscale, color-flow, Doppler evaluation, spectral analysis of the right upper extremity venous stru ctures is performed with 2-D imaging. There is normal luminal compressibility and flow seen in the right upper extremity internal jugular, axillary, and brachial veins with normal flow seen in the rig ht subclavian vein. Flow is demonstrated in the right upper extremity ulnar and radial veins. There is increased luminal echogenicity and decreased lumen compressibility involving the right upper extremity cephalic vein at the level of the upper arm with absence of flow consistent with occlusive thrombus in the cephalic vein in the upper arm. A small caliber cephalic vein is seen in th e lower arm which demonstrates normal luminal compressibility. IMPRESSION: 1. No evidence of a DVT involving the visualized deep venous structures right upper extremity. 2. Occlusive thrombus in the right upper extremity cephalic vein at the level of the upper arm. This is a superficial vein.
--- NOTE | 2020-09-11 16:05 | PDOC.CPN ---
- Subjective Date: 09/11/20 Time: 15:59 Interval history: Her abdominal pain improved yesterday after she had a large BM. She had her CT scan right after her large BM and it was unremarkable. She has not had any more BM's since and is not having any abdominal issues. She denies angina no SOB. She had her right arm peripheral vein infiltrated and it is very painfull and warm. - Review of Systems General: denies: fever/chills, weight/appetite/sleep changes, night sweats, fatigue Respiratory: denies: cough, congestion, shortness of breath, exercise intolerance Cardiovascular: denies: chest pain, palpitation, edema, paroxysmal nocturnal dyspnea, orthopnea Gastrointestinal: denies: nausea, vomiting, diarrhea, constipation, abd pain, GI bleeding Musculoskeletal: reports: pain, tenderness. denies: stiffness, swelling, arthritis/arthralgias Neurological: denies: numbness, syncope, seizure, weakness - Objective Allergies/Adverse Reactions: Allergies Allergy/AdvReac Type Severity Reaction Status Date / Time morphine Allergy Verified 09/04/20 14:12 Visit Medications: Current Medications Acetaminophen (Acetaminophen 325 Mg Tab) 650 mg PO Q6H PRN PRN Reason: Headache/Fever or Pain Last Admin: 09/10/20 22:17 Dose: 650 mg Documented by: Aspirin (Aspirin Chewable 81 Mg Tab) 81 mg PO DAILY [facility] Last Admin: 09/11/20 10:03 Dose: 81 mg Documented by: Atorvastatin Calcium (Atorvastatin Calcium 40 Mg Tab) 40 mg PO HS [facility] Last Admin: 09/10/20 20:04 Dose: 40 mg Documented by: Bisacodyl (Bisacodyl 5 Mg Tab) 5 mg PO DAILYPRN PRN PRN Reason: Constipation Last Admin: 09/05/20 10:59 Dose: 5 mg Documented by: Bisacodyl (Bisacodyl 5 Mg Tab) 5 mg PO DAILY [facility] Last Admin: 09/11/20 10:03 Dose: 5 mg Documented by: Carvedilol (Carvedilol 6.25 Mg Tab) 6.25 mg PO BID-[facility] Last Admin: 09/11/20 10:03 Dose: 6.25 mg Documented by: Clopidogrel Bisulfate (Clopidogrel Bisulfate 75 Mg Tab) 75 mg PO DAILY [facility] Last Admin: 09/11/20 10:03 Dose: 75 mg Documented by: Enoxaparin Sodium (Enoxaparin Sodium 100 Mg/Ml Syringe) 100 mg SC 899,2099 [facility] Last Admin: 09/11/20 10:02 Dose: 100 mg Documented by: Enoxaparin Sodium (Enoxaparin Sodium 30 Mg/0.3 Ml Syringe) 30 mg SC 00,2099 [facility] Last Admin: 09/11/20 10:02 Dose: 30 mg Documented by: Amiodarone HCl 450 mg/ (Dextrose/Water) 259 mls @ 0 mls/hr IVPB INF [facility]; Protocol Last Admin: 09/11/20 08:23 Dose: 259 mls Documented by: Lisinopril (Lisinopril 5 Mg Tab) 5 mg PO DAILY [facility] Last Admin: 09/11/20 10:02 Dose: 5 mg Documented by: Magnesium Hydroxide (Milk Of Magnesia 30 Ml Udcup) 30 ml PO Q12H PRN PRN Reason: Constipation Last Admin: 09/10/20 17:28 Dose: 30 ml Documented by: Metformin HCl (Metformin 500 Mg Tab) 500 mg PO BID-[facility] Last Admin: 09/11/20 10:03 Dose: 500 mg Documented by: Nitroglycerin (Nitroglycerin 0.4 Mg Tab (25 Tab Bottle)) 0.4 mg SL Q5MIN PRN PRN Reason: Chest Pain Last Admin: 09/06/20 00:13 Dose: 0.4 mg Documented by: Pantoprazole Sodium (Pantoprazole 40 Mg Tab) 40 mg PO DAILY [facility] Last Admin: 09/11/20 10:03 Dose: 40 mg Documented by: Polyethylene Glycol (Polyethylene Glycol 3350 17 Gm Packet) 17 gm PO DAILY [facility] Last Admin: 09/11/20 10:04 Dose: 17 gm Documented by: Simethicone (Simethicone Chewable 80 Mg Tab) 80 mg PO [facility] PRN PRN Reason: Gas Pain Last Admin: 09/10/20 11:16 Dose: 80 mg Documented by: Sodium Chloride (Flush - Normal Saline 10 Ml Syringe) 10 ml IVF Q12HR [facility] Last Admin: 09/11/20 10:04 Dose: Not Given Documented by: Sodium Chloride (Flush - Normal Saline 10 Ml Syringe) 10 ml IVF PRN PRN PRN Reason: Saline Flush Vital Signs & Weight: Vital Signs Temp Pulse Resp BP BP Pulse Ox 09/11/20 11:33 98 F 74 16 113/57 L 95 09/11/20 08:30 2 L 09/11/20 08:28 98.2 F 74 16 117/67 94 L Weight 299 lb 6.4 oz - Physical Exam General: alert & oriented x3 HEENT: mucus membranes moist Neck: supple neck Cardiac: regular rate and rhythm Lungs: clear to auscultation Neuro: grossly intact, no lateralizing findings Abdomen: active bowel sounds Extremities: other: (RUE edema. pain and erythema.) Skin: clear Musculoskeletal: fluid collection (right upper extremity.) - Labs Result Diagrams: 09/10/20 04:14 09/10/20 04:14 Troponin/CKMB CK-MB (CK-2) 2.5 ng/mL (0-6.6) 09/04/20 12:15 Troponin I 91.479 ng/mL (< 0.028) H* 09/05/20 03:10 - Telemetry Sinus rhythms and dysrhythmias: sinus rhythm - Assessment/Plan Assessment/Plan: 1. Anterior STEMI 2. Morbid obesity 3. Type 2 diabetes 4. Abdominal pain, likely from Obstipation. Resolved now. 5. Atrial fibrillation. 6. Superficial DVT on RUE. PLAN: - GI following for abdominal pain, CT scan unremarkable, resolved with large BM. - Continue amiodarone drip. - Continue full anticoagulation with lovenox for stroke prophylaxis of afib. - No anticoagulation is recommended for superficial thrombosis of her arm however she is already covered by full dose Lovenox SQ.
--- NOTE | 2020-09-11 17:55 | PRG ---
DATE OF SERVICE: 09/11/2020 SUBJECTIVE: Ms. Hernandez had a large bowel movement and her abdominal pain improved. She had a CT scan, which was unremarkable. She does on my review of the CT have still some retained significant stool over in the right colon, but her pain is resolved. OBJECTIVE: VITAL SIGNS: Her temperature is 97.6, pulse 75, blood pressure 114/56. GENERAL: She is in no acute distress. Awake and alert. LUNGS: Clear to auscultation bilaterally. HEART: Regular rate and rhythm without murmur. ABDOMEN: Soft, nontender, and nondistended. Bowel sounds are present. EXTREMITIES: No lower extremity edema. LABORATORY DATA: Hemoglobin was 11.1 yesterday. IMPRESSION: 1. Abdominal pain secondary to constipation, now resolved. Recommendations, continue daily MiraLAX. She still has some retained stool noted by CT. She has had some chronic constipation prior to admission as well. She should just remain on the MiraLAX 17 g every day, which I stressed to her and her . 2. ST-elevation myocardial infarction. RECOMMENDATIONS: 1. Continue MiraLAX. 2. I will sign off. Please call if GI can be of assistance. Job ID: [id number]
[2020-09-11] MEDS: Atorvastatin Calcium 40 MG TAB PO SCH (21:04)
[2020-09-11] MEDS: Amiodarone 200 MG TAB PO SCH (21:04)
[2020-09-11] MEDS: Acetaminophen 325 MG TAB PO PRN (21:09)
[2020-09-12] MEDS ORDERED: Furosemide 20 MG/2 ML VIAL SLOW IVP SCH (08:45)
--- NOTE | 2020-09-12 09:24 | PRG ---
DATE OF SERVICE: 09/12/2020 SUBJECTIVE: Ms. Hernandez says that her abdomen feels somewhat better today. She complains of difficulty breathing and chest pressure when she tries to lie down flat. She said she could not sleep well because she had that problem last night. She has not been getting up and out of bed much she said. She also complains that her heart rate beating slow, but the heart rate is in the 70s. OBJECTIVE: VITAL SIGNS: Blood pressure this morning 128/75, pulse 74 and regular. LUNGS: Clear. CARDIAC: No new murmur, rub, or gallop. ABDOMEN: Severe obesity. EXTREMITIES: No clubbing or cyanosis. Only mild edema. DIAGNOSTIC STUDIES: The patient did have a CT scan of the abdomen and pelvis. No significant findings were found. She was found to have superficial thrombus in the right arm vein, cephalic. The patient is maintaining sinus rhythm. ASSESSMENT: 1. Status post anterior myocardial infarction. 2. Severe morbid obesity, body mass index is calculated at 47, it is probably higher than that, it does not appear as usually 5 feet 6 inches tall. 3. Paroxysmal atrial fibrillation, improved. 4. Abdominal pain, appears to be related to constipation, improved. 5. Shortness of breath, may have been some element of heart failure. PLAN: 1. Give her furosemide and potassium. 2. Continue ALEXANDRU inhibitors and beta-blockers. 3. Continue amiodarone. 4. We will slightly reduce anticoagulant in order to better risk of bleeding on dual antiplatelet drugs and then full anticoagulation. 5. Check CBC, basic metabolic, and BNP tomorrow. Hopefully home tomorrow. Job ID: [id number]
[2020-09-12] MEDS: Polyethylene Glycol 3350 17 GM Packet PO SCH (10:31)
[2020-09-12] MEDS: Clopidogrel Bisulfate 75 MG TAB PO SCH (10:31)
[2020-09-12] MEDS: Bisacodyl 5 MG TAB PO SCH (10:32)
[2020-09-12] MEDS: Aspirin 81 mg Enteric Coated Tablet PO SCH (10:32)
[2020-09-12] MEDS: metFORMIN 500 MG TAB PO SCH ×2 (10:32→17:35)
[2020-09-12] MEDS: Carvedilol 6.25 MG TAB PO SCH ×2 (10:32→17:35)
[2020-09-12] MEDS: Lisinopril 5 MG TAB PO SCH (10:32)
[2020-09-12] MEDS: Amiodarone 200 MG TAB PO SCH ×2 (10:32→20:55)
[2020-09-12] MEDS: Enoxaparin Sodium 100 MG/ML SYRINGE SC SCH ×2 (10:33→21:11)
[2020-09-12] MEDS: Enoxaparin Sodium 30 MG/0.3 ML SYRINGE SC SCH ×2 (10:33→20:56)
[2020-09-12] MEDS ORDERED: Potassium Chloride 20 MEQ TAB PO SCH (12:00)
[2020-09-12] MEDS: Acetaminophen 325 MG TAB PO PRN (20:54)
[2020-09-12] MEDS: Atorvastatin Calcium 40 MG TAB PO SCH (20:54)
[2020-09-12] MEDS: Milk Of Magnesia 30 ML UDCUP PO PRN (20:58)
[2020-09-13 06:58] LABS: Anion Gap 14 mmol/L (10-20); BUN (Urea Nitrogen) 12 mg/dL (9.8-20.1); Calc. Creatinine Clearance 117 mL/min (70-130); Calcium 8.7 mg/dL (7.8-10.44); Carbon Dioxide 23 mmol/L (23-31); Chloride 99 mmol/L (98-107); Estimated GFR-MDRD 61; Glucose 138 mg/dL (83-110); Potassium 4.2 mmol/L (3.5-5.1); Sodium 132 mmol/L (136-145)
[2020-09-13 07:36] LABS: Band 2 % (5-11); Elliptocytes SLIGHT = 2-5 cells (100X) (0-1/hpf); Hemoglobin 10.5 g/dL (12.0-16.0); Lymphocytes 16 % (21-51); MDiff Complete? YES; Mean Corpuscular HGB CONC 34.3 g/dL (32.0-36.0); Mean Corpuscular Hemoglobin 31.6 pg (27.0-31.0); Mean Corpuscular Volume 92.2 fL (78.0-98.0); Mean Platelet Volume 7.1 fL (7.4-10.4); Monocytes 9 % (0-10); Neutrophil 73 % (42-75); Platelet Count 285 thou/uL (130-400); Platelet Morphology Comment Appears Adequate; RBC Distribution Width 12.5 % (11.5-14.5); Red Blood Cell (RBC) Count 3.31 mill/uL (4.20-5.40); White Blood Cell (WBC) Count 5.6 thou/uL (4.8-10.8)
[2020-09-13] MEDS: Enoxaparin Sodium 100 MG/ML SYRINGE SC SCH (08:59)
[2020-09-13] MEDS: Enoxaparin Sodium 30 MG/0.3 ML SYRINGE SC SCH (09:00)
[2020-09-13] MEDS: Polyethylene Glycol 3350 17 GM Packet PO SCH (09:54)
[2020-09-13] MEDS: Amiodarone 200 MG TAB PO SCH ×2 (09:54→20:21)
[2020-09-13] MEDS: Aspirin 81 mg Enteric Coated Tablet PO SCH (09:54)
[2020-09-13] MEDS: Carvedilol 6.25 MG TAB PO SCH ×2 (09:55→16:48)
[2020-09-13] MEDS: metFORMIN 500 MG TAB PO SCH ×2 (09:56→16:48)
[2020-09-13] MEDS: Lisinopril 5 MG TAB PO SCH (09:56)
[2020-09-13] MEDS: Bisacodyl 5 MG TAB PO SCH (10:02)
[2020-09-13] MEDS: Clopidogrel Bisulfate 75 MG TAB PO SCH (10:02)
[2020-09-13] MEDS ORDERED: Furosemide 20 MG/2 ML VIAL SLOW IVP SCH (10:15)
--- NOTE | 2020-09-13 10:26 | PRG ---
DATE OF SERVICE: 09/13/2020 HISTORY OF PRESENT ILLNESS: Ms. Hernandez feels better, but she said she still had trouble breathing last night, was not as bad as the night before. No chest pain now. She is actually walking very well. She has some pain in the right upper extremities, probably where the IV infiltrated with amiodarone few days ago. OBJECTIVE: VITAL SIGNS: Blood pressure 109/62, pulse 70. LUNGS: Clear. CARDIAC: Normal S1, normal S2. ABDOMEN: Soft, nontender. Very obese. EXTREMITIES: No edema. Right upper extremity, there is some swelling in the right upper extremity about [address] to the upper arm, mildly tender. ASSESSMENT: 1. Status post myocardial infarction. 2. Morbid obesity. 3. Some clot in the right upper extremity in the superficial vein. 4. Still having some paroxysmal atrial fibrillation, but the rate is better. 5. Still probably some congestive heart failure symptoms. PLAN: 1. Give one other extra dose of Lasix. 2. Hopefully, she will be home tomorrow morning. Job ID: [id number]
[2020-09-13] MEDS ORDERED: Potassium Chloride 20 MEQ TAB PO SCH (12:00)
[2020-09-13] MEDS: Atorvastatin Calcium 40 MG TAB PO SCH (20:22)
[2020-09-13] MEDS: Apixaban 5 MG TAB PO SCH (20:22)
[2020-09-13] MEDS: Bisacodyl 5 MG TAB PO PRN (23:23)
[2020-09-14 05:08] LABS: Hemoglobin 10.7 g/dL (12.0-16.0); Platelet Count 349 thou/uL (130-400)
[2020-09-14] MEDS: Carvedilol 6.25 MG TAB PO SCH (08:43)
[2020-09-14] MEDS: metFORMIN 500 MG TAB PO SCH (08:43)
[2020-09-14] MEDS: Apixaban 5 MG TAB PO SCH (08:43)
[2020-09-14] MEDS: Amiodarone 200 MG TAB PO SCH (08:43)
[2020-09-14] MEDS: Aspirin 81 mg Enteric Coated Tablet PO SCH (08:45)
[2020-09-14] MEDS: Lisinopril 5 MG TAB PO SCH (08:45)
[2020-09-14] MEDS: Bisacodyl 5 MG TAB PO SCH (08:46)
[2020-09-14] MEDS: Clopidogrel Bisulfate 75 MG TAB PO SCH (08:46)
[2020-09-14] MEDS: Polyethylene Glycol 3350 17 GM Packet PO SCH (08:46)
[2020-09-14] MEDS: Simethicone Chewable 80 MG TAB PO PRN (08:57)
[2020-09-14 11:57] VITALS: BP 117/65; TEMP 97.6
[2020-09-14] MEDS ORDERED: Amiodarone 200 MG TAB PO SCH (21:00)
[2020-09-15] MEDS ORDERED: Furosemide 20 MG TAB PO SCH (09:00)
--- NOTE | 2020-09-15 10:06 | DIS ---
DATE OF ADMISSION: 09/04/2020 DATE OF DISCHARGE: 09/14/2020 FINAL DIAGNOSES: 1. Status post extensive anterior myocardial infarction. 2. Severe morbid obesity. 3. Abdominal pain, which appears multifactorial. Seen by Gastroenterology. Some of it was probably constipation, some appears to be upper gastrointestinal related with likely gastritis. 4. History of diabetes. 5. History of hypercholesterolemia. MEDICATIONS: At the time of discharge; 1. Lisinopril 5 mg a day. 2. Amiodarone 200 mg twice a day for two weeks, then 200 mg once a day. 3. Eliquis 5 mg twice a day. 4. Coreg 6.25 mg twice a day. 5. Glucophage 500 mg twice a day. 6. Dulcolax 5 mg if needed for constipation. 7. Atorvastatin 40 mg a day. 8. Lasix 20 mg a day. 9. Plavix 75 mg a day. 10. Aspirin 81 mg a day. 11. Protonix 40 mg a day. PROCEDURES HERE: 1. Left heart catheterization, coronary stent implantation. 2. CT scan of her abdomen. CONSULTATION: Gastroenterology. HOSPITAL COURSE: Ms. Hernandez is a 70-year-old woman, who presented to the [facility] [place] with acute anterior myocardial infarction. The patient was transported here by helicopter. She was taken to the cardiac catheterization lab. It was difficult to obtain access due to her weight. She weighed roughly 300 pounds. She says she is 5 feet 6 inches tall, but looks closer to 5-2, so the BMI is probably over 50. The ejection fraction is found to be 40% with apex severe apical hypokinesis, circumflex 50% ostial stenosis with a 60% obtuse marginal lesion. There is a large septal perforating artery slow antegrade flow. The LAD is 99% with thrombus. The patient had a successful stent implantation 3.0 x 16 drug coated stent which was post dilated. The patient had a difficult time here. She initially did quite well, especially in view of her weight and other multiple problems, but then developed atrial fibrillation, which she tolerated very poorly. She also had some atrial flutter. She had to be transported back to the intensive care unit and she tolerated the atrial fibrillation very poorly as mentioned. Ultimately, we were able to give her enough intravenous amiodarone where rate was controlled and then later converted. She had some atrial fibrillation off and on following that. The patient as expected would have severe problem with IV access, mid line was placed, but even that infiltrated. The patient was found to have some thrombus of the superficial vein in her upper arm on ultrasound of her arms. She had complained of severe abdominal pain. Gastroenterology saw her and ultimately decided it was a combination mostly of gastritis and chronic constipation. The patient had CT scan, also ultrasound of her abdomen. The patient is up walking in the becerra. She said she still feels short of breath with exertion, but that is related to her myocardial infarction. She has upper gastrointestinal type symptoms. She is on Protonix for that. The patient is on triple drug therapy. Currently, we will need to leave her on aspirin, Eliquis, and Plavix for a month and at the end of a month would need to consider whether either to stop the Eliquis or the aspirin. Fortunately, her blood counts have really not dropped here significantly even despite the anticoagulation. Pertinent laboratory; the BNP was 289 on 09/13. She has received some intravenous Lasix. It was actually 77 on the . Her LDL cholesterol was 94, creatinine 0.91, most recent potassium is 4.2, hemoglobin is 10.7 today. The patient will be asked to see us in the office in a couple of weeks. Long-term prognosis guarded, especially with severe morbid obesity. Job ID: [id number]
--- NOTE | 2020-09-16 00:08 | PQF ---
CLINICAL DOCUMENTATION CLARIFICATION FORM: Dear : Adebayo Bethea MD Date / Time: 09/15/2020 Please exercise your independent, professional judgment in responding to the clarification form. Clinical indicators are provided on the bottom of this form for your review Please check appropriate box(es): HEART FAILURE: A. ACUITY [ ] Acute [ ] Acute on Chronic [ ] Chronic B. TYPE: [ ] Systolic / HFrEF [ ] Diastolic / HFpEF [ ] Combined Systolic / Diastolic [ ] Hypertensive Heart and Kidney disease [ ] Hypertensive Heart Disease [ ] Hypertensive Kidney Disease [ ] Other diagnosis (Please specify if any) [ ] Unable to determine In addition, please specify: Present on Admission (POA): [ ] Yes [ ] No [ ] Unable to determine Physician Signature: Date/Time: For continuity of documentation, please document condition throughout progress notes and discharge summary. Thank You. To be completed by CDI/Coding staff for physician review: Present Clinical Indicators - Signs / Symptoms / Labs Results and Location in Medical Record [x] Ejection Fraction = 40% Discharge summary on 09/14 [ ] Dyspnea, Hypoxia [ ] Peripheral edema [x] Elevated BNP 289.0 H Laboratory on 09/13 [x] Still probably some congestive heart failure symptoms Progress notes on 09/13 [ ] Orthopnea / SOB / dyspnea [ ] Pleural effusion / pulmonary edema [ ] CXR results [ ] Arrhythmia--tachycardia Present Risk Factors Results and Location in Medical Record [ ] History of CAD/ischemic heart disease [x] CKD Hypertension H&P on 09/04 [x] Acute extensive myocardial infarction H&P on 09/04 Present Treatments Results and Location in Medical Record [x] Lasix 40 mg IV Medication on 09/05 [x] Lasix 20 mg IV Medication on 09/09 [ ] IV or PO diuretics [ ] Oxygen [ ] AICD [ ] Cardiology Consult CDS/Wind Project Manager Signature: AAS Phone #: Date/Time: 09/15/2020 This is a permanent part of the Medical Record [facility]
== END 2020-09-14 13:20 | disposition home or self-care (01) | DRG 247 ==
LOC: ERS 12:04 → CCU 14:31 → 2NO 09-05 11:27 → CCU 09-05 21:03 → 2NO 09-06 17:51
PROVIDERS: ADMIT Internal Medicine Cardiovascular Disease; ATTEND Internal Medicine Cardiovascular Disease
PROC: B2111ZZ Fluoroscopy of Multiple Coronary Arteries using Low Osmolar Contrast (ICD-10-PCS; principal; 2020-09-04)
PROC: 027034Z Dilation of Coronary Artery, One Artery with Drug-eluting Intraluminal Device, Percutaneous Approach (ICD-10-PCS; 2020-09-04)
PROC: 02C03ZZ Extirpation of Matter from Coronary Artery, One Artery, Percutaneous Approach (ICD-10-PCS; 2020-09-04)
PROC: B2151ZZ Fluoroscopy of Left Heart using Low Osmolar Contrast (ICD-10-PCS; 2020-09-04)
PROC: 4A023N7 Measurement of Cardiac Sampling and Pressure, Left Heart, Percutaneous Approach (ICD-10-PCS; 2020-09-04)
DX: I21.09 ST elevation (STEMI) myocardial infarction involving other coronary artery of anterior wall (principal); Z68.42 Body mass index [BMI] 45.0-49.9, adult; I82.621 Acute embolism and thrombosis of deep veins of right upper extremity; E11.9 Type 2 diabetes mellitus without complications; E66.01 Morbid (severe) obesity due to excess calories; I48.0 Paroxysmal atrial fibrillation; E78.5 Hyperlipidemia, unspecified; K59.00 Constipation, unspecified; Z20.828 Contact with and (suspected) exposure to other viral communicable diseases; R31.9 Hematuria, unspecified; I10 Essential (primary) hypertension; Z90.49 Acquired absence of other specified parts of digestive tract; Z88.6 Allergy status to analgesic agent
CPT/HCPCS: 36415; 36416; 71045; 74018; 74177; 76942; 80048; 80053; 80061; 82553; 82565; 83735; 83880; 84443; 84484; 85014; 85018; 85025; 85049; 85347; 87635; 92928; 93005; 93010; 93458; 93798; 96374; 97139; 99152; 99153; C1874; C9600; J0282; J1644; J1650; J1940; J2405; J3010; J3246; J3475; J3490; J7050; J7070; Q9967; U0003